=== PATIENT | male | born 1935 | race Caucasian/White ===

== ENCOUNTER 2017-06-03 11:41 | Observation (INO) | payer OTHER, MEDICARE ==
[~2017-06-03] VITALS: Ht 172.7 cm; Wt 69.3 kg
[2017-06-03 13:32] LABS: HEMOGLOBIN 11.7 G/DL (12.5-16.6); MCHC 33.4 G/DL (30.0-36.0); MCV 92.8 FL (86-99); PLATELET COUNT 235 K/uL (156-360); RBC DIS.WIDTH-CV 13.5 % (11.8-14.6); RBC DIS.WIDTH-SD 46.5 % (39-53); RED BLOOD COUNT 3.77 M/uL (4.00-5.50); WHITE BLOOD COUNT 13.8 K/uL (4.1-10.2)
[2017-06-03 13:45] LABS: CHLORIDE 104 mEq/L (99-109); POTASSIUM 4.2 mEq/L (3.7-5.4); SODIUM 140 mEq/L (136-147)
[2017-06-03 13:47] LABS: GLUCOSE 111 mg/dL (70-99)
[2017-06-03 13:50] LABS: CREATININE 1.2 mg/dL (0.6-1.3); GFR ESTIMATE (CALCULATED) > 59 mL/min/ (58.99-99999)
[2017-06-03 13:51] LABS: UREA NITROGEN (BUN) 20 mg/dL (9-23)
[2017-06-03 13:53] LABS: URIC ACID 5.1 mg/dL (3.1-9.2)
[2017-06-03] MEDS ORDERED: KENALOG,ARISTOC80 GM TP (16:45)
[2017-06-03] MEDS ORDERED: IPRATROPIUM BRO15 ML BOTH NARES (16:45)
[2017-06-03] MEDS ORDERED: ATORVASTATIN CA80 MG PO (16:47)
[2017-06-03] MEDS ORDERED: NIZORAL SHAMPO120 ML TP (16:47)
[2017-06-03] MEDS ORDERED: HYDROCHLOROTH12.5 M3 PO (16:48)
[2017-06-03] MEDS ORDERED: AMLODIPINE BESYL5 MG PO (16:48)
[2017-06-03] MEDS ORDERED: LOSARTAN POTAS100 MG PO (16:49)
[2017-06-03] MEDS ORDERED: METFORMIN HCL500 MG PO (16:49)
[2017-06-03] MEDS ORDERED: LOPRESSOR50 MG PO (16:49)
[2017-06-03] MEDS ORDERED: LEVOTHYROXINE50 MCG PO (17:01)
[2017-06-03] MEDS ORDERED: OMEPRAZOLE20 MG PO (17:01)
[2017-06-03 20:49] VITALS: BP 128/94
[2017-06-04 00:06] VITALS: BP 135/77
[2017-06-04 06:56] LABS: BASOPHIL (%) 0.7 % (0-1); BASOPHIL COUNT 0.1 K/uL (0-0.1); EOSINOPHIL (%) 3.7 % (0-5); EOSINOPHIL COUNT 0.4 K/uL (0-0.3); HEMATOCRIT 34.7 % (38.0-50.0); HEMOGLOBIN 11.3 G/DL (12.5-16.6); IMMATURE GRANULOCYTE (%) 0.5 % (0.0-0.7); LYMPHOCYTE (%) 28.3 % (15-42); LYMPHOCYTE COUNT 2.9 K/uL (1.0-2.8); MCH 30.6 PG (29.0-34.0); MCHC 32.6 G/DL (30.0-36.0); MONOCYTE (%) 11.3 % (3-12); MONOCYTE COUNT 1.2 K/uL (0-0.8); NEUTROPHIL (%) 55.5 % (45-76); NEUTROPHIL COUNT 5.7 K/uL (1.8-6.4); PLATELET COUNT 208 K/uL (156-360); RBC DIS.WIDTH-CV 13.7 % (11.8-14.6); RBC DIS.WIDTH-SD 47.5 % (39-53); RED BLOOD COUNT 3.69 M/uL (4.00-5.50); WHITE BLOOD COUNT 10.2 K/uL (4.1-10.2)
[2017-06-04 08:15] VITALS: BP 174/76
[2017-06-04] MEDS ORDERED: KEFLEX500 MG PO (11:56)
[2017-06-04 12:20] VITALS: BP 141/65
== END 2017-06-04 13:30 | disposition home or self-care (01) ==
LOC: EME 11:41 → EDOF 17:01 → ENRESERV 17:08 → EDOF 19:27 → 5WEST 20:33
PROVIDERS: Internal Medicine; Physician Assistant
DX: L03.114 Cellulitis of left upper limb (principal); M65.9 Synovitis and tenosynovitis, unspecified; I10 Essential (primary) hypertension; I25.10 Atherosclerotic heart disease of native coronary artery without angina pectoris; Z95.1 Presence of aortocoronary bypass graft; E11.9 Type 2 diabetes mellitus without complications; M25.532 Pain in left wrist; M79.642 Pain in left hand; M19.042 Primary osteoarthritis, left hand; Z79.84 Long term (current) use of oral hypoglycemic drugs; Z82.49 Family history of ischemic heart disease and other diseases of the circulatory system; Z83.3 Family history of diabetes mellitus
CPT/HCPCS: 73130; 80048; 82948; 83605; 84550; 85025; 85027; 85652; 86140; 87040; 87070; 87075; 87205; 93005; 93971; 99281; 99284; G0378; J1650; J2543; J7050